=== PATIENT | male | born 1955 | race Caucasian/White ===

== ENCOUNTER 2016-06-19 07:49 | Day surgery (SDC) | payer BC, MEDICARE ==
[~2016-06-19] VITALS: Ht 200.7 cm; Wt 114.0 kg
[~2016-06-19 07:49] MED LIST: ALLO300T PO; BUPIVACAINE/PF-EPI 0.5% 1:200K ONE; GLIP10TA13 PO; LISI5TAB7 PO
[2016-06-19] MEDS ORDERED: LACTATED RINGERS 1,000 ML IV SCH (08:07)
[2016-06-19] MEDS ORDERED: FENTANYL PF 250 MCG/5ML ONE (08:25)
[2016-06-19] MEDS ORDERED: SUCCINYLCHOLINE 20 MG/ML, 10ML ONE (08:53)
[2016-06-19] MEDS ORDERED: NEOSTIGMINE 1 MG/ML, 10ML ONE (08:53)
[2016-06-19] MEDS ORDERED: ROCURONIUM 10 MG/ML ONE (08:53)
[2016-06-19] MEDS ORDERED: GLYCOPYRROLATE 0.2MG/1ML ONE (08:53)
[2016-06-19] MEDS ORDERED: ONDANSETRON 2MG/ML, 2ML ONE (08:53)
[2016-06-19] MEDS ORDERED: PROPOFOL 10 MG/ML, 20ML ONE (08:53)
[2016-06-19] MEDS ORDERED: EPHEDRINE 50 MG/ML, 1ML IVPush PRN (09:00)
[2016-06-19] MEDS ORDERED: HYDROmorphone 1 MG/ML, 1ML IV PRN (09:00)
[2016-06-19] MEDS ORDERED: PROMETHAZINE 25 MG/ML, 1ML IV PRN (09:00)
[2016-06-19] MEDS ORDERED: METOPROLOL 1 MG/ML, 5ML IV PRN (09:00)
[2016-06-19] MEDS ORDERED: ONDANSETRON 2MG/ML, 2ML IVPush PRN (09:00)
[2016-06-19] MEDS ORDERED: ALBUTEROL SULFATE 2.5 MG/3 ML NPPB PRN (09:00)
[2016-06-19] MEDS ORDERED: OXYcodone 5 MG/5 ML ORAL.SOL UDC PO PRN (09:00)
[2016-06-19] MEDS ORDERED: FENTANYL PF 100 MCG/2ML IV PRN (09:00)
[2016-06-19] MEDS ORDERED: ACETAMINOPHEN 325 MG TABLET PO PRN (09:00)
[2016-06-19] MEDS ORDERED: hydrALAzine 20 MG/ML, 1ML IV PRN (09:00)
[2016-06-19 10:17] LABS: IOPTH BASELINE 211 pg/mL
[2016-06-19] MEDS ORDERED: LABETALOL 5MG/ML, 20ML ONE (11:02)
[2016-06-19] MEDS: LABETALOL 5MG/ML, 20ML IV PRN ×2 (11:03→11:09)
== END 2016-06-19 12:30 | disposition home or self-care (01) ==
LOC: OUT 07:49
PROVIDERS: ATTEND Surgery
DX: E04.1 Nontoxic single thyroid nodule (principal); E21.3 Hyperparathyroidism, unspecified; E11.22 Type 2 diabetes mellitus with diabetic chronic kidney disease; I12.9 Hypertensive chronic kidney disease with stage 1 through stage 4 chronic kidney disease, or unspecified chronic kidney disease; N18.3 Chronic kidney disease, stage 3 (moderate); Z80.8 Family history of malignant neoplasm of other organs or systems
CPT/HCPCS: 36415; 60220; 60500; 82962; 83970; 88307; 88331; 88333; 95865; 95940; J0330; J2405; J2704; J2710; J3010; J3490

== ENCOUNTER → 2016-06-27 | Outpatient (CLI) | payer BC ==
[~2016-06-27] MED LIST changes: -BUPIVACAINE/PF-EPI 0.5% 1:200K ONE
== END | disposition home or self-care (01) ==
LOC: CFH 12:30
PROVIDERS: ATTEND Surgery
DX: E83.50 Unspecified disorder of calcium metabolism (principal)
CPT/HCPCS: 36415; 82310